=== PATIENT | male | born 1960 | race Caucasian/White ===

== ENCOUNTER 2016-06-10 15:29 | Emergency (ER) | payer OTHER ==
--- NOTE | 2016-06-10 17:17 | DIAGNOSTIC IMAGING REPORT ---
PROCEDURE: XR CHEST 2 VIEW INDICATION: CHEST PAIN TECHNIQUE: PA and lateral views. COMPARISON: None. FINDINGS: Allowing for overlying wires and electrodes, lungs are clear. Heart and mediastinum are normal. Thorax is normal. IMPRESSION: 1. Negative chest.
--- NOTE | 2016-06-10 20:25 | ED CLINICAL REPORT ---
Clinical Report - Physicians/Mid Levels [facility] [address] [place] [address] 06/10/2016 15:31 Patient: KAREY MICHAEL Arrived- By private vehicle. Historian- patient. HISTORY OF PRESENT ILLNESS Chief Complaint: CHEST PAIN. This started today At 2 pm. Sitting in chair, and is still present but is improving. It was abrupt in onset and has been waxing/waning but is not gone now. Onset during rest. At its maximum, severity described as moderate. When seen in the E.D., severity described as moderate. Modifying factors. Not worsened by anything. Not relieved by anything. It is described as burning and it is described as located in the left chest area. No radiation. No nausea, vomiting, difficulty breathing or diaphoresis. (reports there is an trauma, hemoptysis, hematemesis, leg swelling, recent surgery, history of DVT/PE. None of above). No additional chest pain. Similar symptoms previously: None. Recent medical care: Not recently seen/assessed. REVIEW OF SYSTEMS No fever, chills, cough or pedal edema or edema. No calf pain or pain, skin rash, ear pain or sore throat. No cough, difficulty breathing, abdominal pain, black stools or bloody stools. No constipation, diarrhea, nausea, vomiting or joint pain. No laceration, headache, head injury, diabetic symptoms or difficulty with urination. The patient has had decreased vision. It has been similar to previous symptoms. He has had chest pain. PAST HISTORY See nurses notes. PCP: Dr Yobani Lozano Ops: L tibia Manan, L eye, Liver biopsy Hosp: R leg infection. SOCIAL HISTORY Former smoker. Alcohol use. No drug use. Is a local resident. FAMILY HISTORY History of heart disease (Sister has valvular heart disease). ADDITIONAL NOTES The nursing notes have been reviewed. PHYSICAL EXAM Vital Signs: 06/10/2016 15:52 BP: 153/63. HR: 91. RR: 18. O2 saturation: 95%. Temp: 98.4 F. Blood pressure normal. Oxygen saturation normal. Appearance: Alert. Oriented X3. No acute distress. Eyes: Pupils equal, round and reactive to light. Eyes normal inspection. ENT: Ears normal. Nose normal. Pharynx normal. Neck: Normal inspection. Neck supple. CVS: Normal heart rate and rhythm. Heart sounds normal. Pulses normal. No decreased pulses. Respiratory: No respiratory distress. Breath sounds normal. Chest nontender. Abdomen: Soft and nontender. Bowel sounds normal. Skin: Skin warm and dry. Normal skin color. No rash. Normal skin turgor. Extremities: Extremities exhibit normal ROM. No lower extremity edema. Neuro: Oriented X 3. No motor deficit. No sensory deficit. LABS, X-RAYS, AND EKG EKG: No acute process. No acute ischemia. Normal EKG. Normal sinus rhythm. Rate: 92. Normal P waves. Normal ROSALINDA. Normal QRS complex. Normal axis. Normal ST and T waves, QT and QTc. Prior EKG unavailable. The study has been interpreted contemporaneously. The study has been independently viewed by me. The EKG appears to be a good tracing. Chest X-ray: (PROCEDURE: XR CHEST 2 VIEW INDICATION: CHEST PAIN TECHNIQUE: PA and lateral views. COMPARISON: None. FINDINGS: Allowing for overlying wires and electrodes, lungs are clear. Heart and mediastinum are normal. Thorax is normal. IMPRESSION: 1. Negative chest. Electronically Final signed by:Toni Rosenbaum MD 06/10/2016 5:15:39 PM). Laboratory Tests: CBC w Diff: (BENJY: 06/10/2016 16:00) ( MsgRcvd 06/10/2016 16:18) Final results Test Result Flag Units (Reference) WHITE BLOOD COUNT 6.9 K/uL (4.5-11.5) RED BLOOD COUNT 5.03 M/uL (4.50-5.90) HEMOGLOBIN 14.9 gm/dL (13.5-17.5) HEMATOCRIT 42.8 % (41.0-53.0) MEAN CELL VOLUME 85 fL (80-100) MEAN CORPUSCULAR HGB 30 pg (26-34) MEAN CORPUSCULAR HGB CONC 35 g/dL (31-37) RED CELL DISTRIBUTION WIDTH 12.9 % (11.6-14.8) PLATELET COUNT 84 L K/uL (150-400) NEUTROPHIL % 55.9 % (50-75) LYMPH % 36.7 % (25-40) MONO % 5.8 % (3-14) EOSINOPHIL % 1.2 % (0-4) BASOPHIL % 0.4 % (0-2) [id number]: (BENJY: 06/10/2016 16:00) ( [facility] 06/10/2016 19:08) Final results Test Result Flag Units (Reference) D-DIMER QUANTITATIVE 0.30 ug/mLFEU (0.27-0.52) The primary value of this quantitative assay relates toits negative predictive value (i.e. exclusion) of pulmonaryembolism/deep vein thrombosis/DIC.Elevated levels of d-dimer may also occur with:, age, cancer, inflammation, liver disease,post-op, infection, hematoma, coronary disease, peripheralarteriopathy, bleeding disorders and thrombolytic treatment.Results should be correlated with other clinical andradiological data.Testing Methodology: Latex Immunoassay Troponin-I: (BENJY: 06/10/2016 18:09) ( [facility] 06/10/2016 18:46) Final results Test Result Flag Units (Reference) TROPONIN I 0.05 ng/mL (0.00-1.5) TROPONIN REFERENCE RANGE:<0.1 NEGATIVE0.1-1.5 INDETERMINANT>1.5 POSITIVE CMP: (BENJY: 06/10/2016 16:00) ( [facility] 06/10/2016 17:08) Final results Test Result Flag Units (Reference) GLUCOSE 250 H mg/dL (70-110) BUN 14 mg/dL (7-18) CREATININE 0.9 mg/dL (0.6-1.3) Estimated GFR >60 mL/min Estimated GFR- >60 mL/min Note: Persistent reduction over 3 months in eGFR<60 mL/min/1.73 m2 defines CKD. Patients with eGFR values>=60 mL/min/1.73 m2 may also have CKD if evidence ofpersistent proteinuria. Additional information may be foundat www.[email or web address].org. SODIUM 140 mmol/L (136-145) POTASSIUM 4.1 mmol/L (3.5-5.1) CHLORIDE 105 mmol/L (98-107) CARBON DIOXIDE 25 mmol/L (21-32) CALCIUM 8.5 mg/dL (8.5-10.1) TOTAL PROTEIN 7.1 g/dL (6.4-8.2) ALBUMIN 3.8 g/dL (3.3-5.0) BILIRUBIN, TOTAL 0.5 mg/dL (0.0-1.0) ALKALINE PHOSPHATASE 109 U/L (46-116) AST (SGOT) 55 H U/L (15-37) ALT (SGPT) 136 H U/L (12-78) TROPONIN I 0.07 ng/mL (0.00-1.5) TROPONIN REFERENCE RANGE:<0.1 NEGATIVE0.1-1.5 INDETERMINANT>1.5 POSITIVE . PROGRESS AND PROCEDURES Course of Care: the patient is a pleasant 55 her old male with history of high cholesterol and diabetes presenting for burning left-sided chest pain. Patient's chest pain appears to be atypical nature. Patient describes the pain as burning in nature. Reports no alleviating or aggravating factors. Patient is nontoxic and in no acute distress. Differential diagnoses at this time includes pneumonia, gastric esophageal reflux, and acute myocardial infarction. Does not appear to be pleuritic in nature. [place] signs here in the emergency department is significant for only mild hypertension without hypoxia. Do not feel patient has pulmonary embolism. Do not feel further workup is required for a low Risk on Wells criteria. delta troponin needed based on patient's onset of symptoms about an hour and a half prior to evaluation. Patient is agreeable to the treatment and plan. plan of care discussed with Dr. Akash Valentine. Plan spoke with the patient's laboratory studies and chest x-ray which are currently pending. Appropriate disposition will be decided upon when the rest of the patient's laboratory studies andimaging results have returned. 18:23 06/10/16. Assumed care from Dr Mckee due to end of shift/R MD Serge Independent history and physical performed. Independently looked at EKG and CXR Given intermittent burning nature of pain which began at rest while drinking beer, EKG and 2 negative troponins the likelihood of ACS is low. Pain is 0/10 at the time of my evaluation. Clinical situation not consistent with pneumothorax, esophageal rupture or aortic dissection. Not PE. Disposition: Discharged. Condition: stable. CLINICAL IMPRESSION Atypical chest pain Clinical picture does not suggest aortic dissection, pulmonary embolism or pneumothorax. INSTRUCTIONS (NO ADVIL, ALCOHOL, NORMAL DOSE ASPRIN MAALOX OR OTHER LIQUID ANTACID 4 TIMES A DAY. ASA 81 mg per day.). Prescription Medications: Zantac 150 mg tablets: take 1 orally every 12 hours. Dispense thirty (30). No refills. Substitution is permissible. Follow-up: Follow up with your doctor in six days even if well. Understanding of the discharge instructions verbalized by patient and family. (Electronically signed by Akash Valentine MD 06/10/2016 23:00)
--- NOTE | 2016-06-10 20:25 | ED ORDER SUMMARY ---
..... Patient: KAREY MICHAEL OrderSheet [facility] VisitID: [id number] [address] [place] [address] 55y, M Registration Date/Time: 06/10/2016 ORDER SHEET Weight: 97.5 kg (stated) Allergies: Penicillins GENERAL ORDERS: EKG - ER Stat (15:51 06/10/2016 DBeyer R.N. per protocol) (Ack 15:58 LNations ER Tech1) (16:21 LNations ER Tech1) Chest 2V Urgent (16:02 06/10/2016 Paul Boyd) (Ack 16:04 LNations ER Tech1) (18:52 LNations ER Tech1) Billing Checker (Continuous) (CP) (16:02 06/10/2016 Paul Boyd) (Ack 16:04 LNations ER Tech1) (16:27 DBeyer R.N.) CBC w Diff Urgent (16:02 06/10/2016 Paul Boyd) (Ack 16:04 LNations ER Tech1) (16:27 DBeyer R.N.) CMP Urgent (16:02 06/10/2016 Paul Boyd) (Ack 16:04 LNations ER Tech1) (16:27 DBeyer R.N.) Troponin-I Urgent (16:02 06/10/2016 Paul Boyd) (Ack 16:04 LNations ER Tech1) (16:27 DBeyer R.N.) Pulse oximeter (16:02 06/10/2016 Paul Boyd) (Ack 16:04 LNations ER Tech1) (16:27 DBeyer R.N.) Troponin-I (draw 2 hours after first trop drawn) Urgent (17:37 06/10/2016 Paul Boyd) (Ack 17:45 LNations ER Tech1) (18:52 LNations ER Tech1) D-Dimer Urgent (18:38 06/10/2016 Susy MERCER) (Ack 18:40 LNations ER Tech1) (18:52 LNations ER Tech1) MEDICATION ORDERS: GI Cocktail WHITE PO 30 mL (NOW) (16:02 06/10/2016 Paul Boyd) (16:17 Yaz R.N.) Aspirin PO 325 mg (Do not crush or chew, NOW) (17:56 06/10/2016 Paul Boyd) (18:12 Yaz Baxter.N.) IV FLUIDS: IV Saline Lock (16:02 06/10/2016 Paul Boyd) (16:10 Yaz R.N.) ORDER SHEET NOTES: [Electronically signed by Akash Valentine MD (23:00 06/10/2016)] [Electronically signed by Baudilio Burns R.N. (23:06/10/2016)] [Electronically locked/signed by Baudilio Burns R.N. (23:06/10/2016)]
--- NOTE | 2016-06-10 20:25 | ED NURSING NOTES ---
Clinical Report - Nurses [facility] [place] [address] 06/10/2016 15:31 Patient: KAREY MICHAEL TRIAGE Triage time 15:53 Jun 10 2016. Acuity: LEVEL 3. Chief Complaint: CHEST PAIN. --15:56 Baudilio Burns R.N. 15:52 06/10/16. BP: 153/63. HR: 91. RR: 18. O2 saturation: 95%. Temp: 98.4 F. Pain level now 07/30. --15:56 Baudilio Burns R.N. Weight: 97.5 kg stated. Height/Length: 68 inches Per Patient. BMI: 32.7. --15:56 Baudilio Burns R.N. Medications Lantus Subcutaneous. --15:54 Baudilio Burns R.N. MetFORMIN HCl Oral. --15:54 Baudilio Burns R.N. Atorvastatin Calcium Oral. --15:55 Baudilio Burns R.N. Allergies Penicillins. --15:53 Baudilio Burns R.N. History Arrived by private vehicle. ( Pt reports sudden on set L sided chest pain described as buring). This started just prior to arrival. PAST MEDICAL HX: Diabetes mellitus. SOCIAL HX: Never smoker. No alcohol use or drug use. --15:56 Baudilio Burns R.N. PROBLEMS: Hypercholesterolemia. Diabetes Mellitus. --15:55 Baudilio Burns R.N. Assessment The patient states feels better. --15:56 Baudilio Burns R.N. Interventions ID band on patient. To treatment room. --15:56 Baudilio Burns R.N. NURSING PROGRESS NOTES EKG time: (16:01). EKG was performed by a tech and shown to the ED physician. --16:06 Cora Welch 16:10 06/10/2016 Site #1 started prior to arrival by EMS via IV wrist with an 18g angiocath, with aseptic technique and good blood return; one attempt. Blood drawn: rainbow set. Labeled in the presence of the patient. Saline lock flushed with saline. --16:10 Baudilio Burns R.N. 16:17 06/10/2016 GI COCKTAIL WHITE (Simethicone) PO. Allergies verified and confirmed 5 rights. --16:17 Baudilio Burns R.N. 18:12 06/10/2016 Aspirin PO 325 mg given. Allergies verified and confirmed 5 rights. --18:12 Baudilio Burns R.N. 18:13 06/10/16. BP: 133/80. HR: 82. O2 saturation: 96%. --18:13 Baudilio Burns R.N. lunchroom monitor and pulse oximeter placed on patient. Patient gowned. Call light placed in reach. Side rails up x 1. Bed placed in lowest position. --18:13 Baudilio Burns R.N. 19:14 06/10/16. BP: 97/66. HR: 80. O2 saturation: 98%. --19:14 Baudilio Burns R.N. DISPOSITION / DISCHARGE No learning barriers present. Discharge instructions provided and reviewed with the patient. Reviewed warnings. Reviewed medication(s). Treatments reviewed. Patient verbalized understanding. Written instructions provided in [place]. The patient was discharged by the physician. He was discharged home and accompanied by family. He left the Emergency Department ambulatory and via private vehicle. Family member driving. --20:39 Baudilio Burns R.N. 20:38 06/10/16. BP: 110/72. HR: 78. RR: 20. O2 saturation: 100%. Pain level now 0/10. --20:39 Baudilio Burns R.N. Locked/Released at 06/10/2016 23:01 by Baudilio Burns R.N.
--- NOTE | 2016-06-10 20:25 | ED ORDER SUMMARY ---
..... Patient: KAREY MICHAEL OrderSheet [facility] VisitID: [id number] [address] [place] [address] 55y, M Registration Date/Time: 06/10/2016 ORDER SHEET Weight: 97.5 kg (stated) Allergies: Penicillins GENERAL ORDERS: EKG - ER Stat (15:51 06/10/2016 DBeyer R.N. per protocol) (Ack 15:58 LNations ER Tech1) (16:21 LNations ER Tech1) Chest 2V Urgent (16:02 06/10/2016 Paul Boyd) (Ack 16:04 LNations ER Tech1) (18:52 LNations ER Tech1) Pet Crematory Worker (Continuous) (CP) (16:02 06/10/2016 Paul Boyd) (Ack 16:04 LNations ER Tech1) (16:27 DBeyer R.N.) CBC w Diff Urgent (16:02 06/10/2016 Paul Boyd) (Ack 16:04 LNations ER Tech1) (16:27 DBeyer R.N.) CMP Urgent (16:02 06/10/2016 Paul Boyd) (Ack 16:04 LNations ER Tech1) (16:27 DBeyer R.N.) Troponin-I Urgent (16:02 06/10/2016 Paul Boyd) (Ack 16:04 LNations ER Tech1) (16:27 DBeyer R.N.) Pulse oximeter (16:02 06/10/2016 Paul Boyd) (Ack 16:04 LNations ER Tech1) (16:27 DBeyer R.N.) Troponin-I (draw 2 hours after first trop drawn) Urgent (17:37 06/10/2016 Paul Boyd) (Ack 17:45 LNations ER Tech1) (18:52 LNations ER Tech1) D-Dimer Urgent (18:38 06/10/2016 Susy MERCER) (Ack 18:40 LNations ER Tech1) (18:52 LNations ER Tech1) MEDICATION ORDERS: GI Cocktail WHITE PO 30 mL (NOW) (16:02 06/10/2016 Paul Boyd) (16:17 Yaz R.N.) Aspirin PO 325 mg (Do not crush or chew, NOW) (17:56 06/10/2016 Paul Boyd) (18:12 Yaz Baxter.N.) IV FLUIDS: IV Saline Lock (16:02 06/10/2016 Paul Boyd) (16:10 Yaz R.N.) ORDER SHEET NOTES: [Electronically signed by Akash Valentine MD (23:00 06/10/2016)] [Electronically signed by Baudilio Burns R.N. (23:06/10/2016)] [Electronically locked/signed by Baudilio Burns R.N. (23:06/10/2016)]
--- NOTE | 2016-06-10 20:25 | ED NURSING NOTES ---
Clinical Report - [facility]es [facility] [address] 06/10/2016 15:31 Patient: KAREY MICHAEL TRIAGE Triage time 15:53 Jun 10 2016. Acuity: LEVEL 3. Chief Complaint: CHEST PAIN. --15:56 Baudilio Burns R.N. 15:52 06/10/16. BP: 153/63. HR: 91. RR: 18. O2 saturation: 95%. Temp: 98.4 F. Pain level now 07/30. --15:56 Baudilio Burns R.N. Weight: 97.5 kg stated. Height/Length: 68 inches Per Patient. BMI: 32.7. --15:56 Baudilio Burns R.N. Medications Lantus Subcutaneous. --15:54 Baudilio Burns R.N. MetFORMIN HCl Oral. --15:54 Baudilio Burns R.N. Atorvastatin Calcium Oral. --15:55 Baudilio Burns R.N. Allergies Penicillins. --15:53 Baudilio Burns R.N. History Arrived by private vehicle. ( Pt reports sudden on set L sided chest pain described as buring). This started just prior to arrival. PAST MEDICAL HX: Diabetes mellitus. SOCIAL HX: Never smoker. No alcohol use or drug use. --15:56 Baudilio Burns R.N. PROBLEMS: Hypercholesterolemia. Diabetes Mellitus. --15:55 Baudilio Burns R.N. Assessment The patient states feels better. --15:56 Baudilio Burns R.N. Interventions ID band on patient. To treatment room. --15:56 Baudilio Burns R.N. NURSING PROGRESS NOTES EKG time: (16:01). EKG was performed by a tech and shown to the ED physician. --16:06 Cora Welch 16:10 06/10/2016 Site #1 started prior to arrival by EMS via IV wrist with an 18g angiocath, with aseptic technique and good blood return; one attempt. Blood drawn: rainbow set. Labeled in the presence of the patient. Saline lock flushed with saline. --16:10 Baudilio Burns R.N. 16:17 06/10/2016 GI COCKTAIL WHITE (Simethicone) PO. Allergies verified and confirmed 5 rights. --16:17 Baudilio Burns R.N. 18:12 06/10/2016 Aspirin PO 325 mg given. Allergies verified and confirmed 5 rights. --18:12 Baudilio Burns R.N. 18:13 06/10/16. BP: 133/80. HR: 82. O2 saturation: 96%. --18:13 Baudilio Burns R.N. quality assurance monitor final and pulse oximeter placed on patient. Patient gowned. Call light placed in reach. Side rails up x 1. Bed placed in lowest position. --18:13 Baudilio Burns R.N. 19:14 06/10/16. BP: 97/66. HR: 80. O2 saturation: 98%. --19:14 Baudilio Burns R.N. DISPOSITION / DISCHARGE No learning barriers present. Discharge instructions provided and reviewed with the patient. Reviewed warnings. Reviewed medication(s). Treatments reviewed. Patient verbalized understanding. Written instructions provided in [place]. The patient was discharged by the physician. He was discharged home and accompanied by family. He left the Emergency Department ambulatory and via private vehicle. Family member driving. --20:39 Baudilio Burns R.N. 20:38 06/10/16. BP: 110/72. HR: 78. RR: 20. O2 saturation: 100%. Pain level now 0/10. --20:39 Baudilio Burns R.N. Locked/Released at 06/10/2016 23:01 by Baudilio Burns R.N.
--- NOTE | 2016-06-10 23:02 | ED MAR SUMMARY ---
..... Medication Administration Record [facility] [address] [place] [address] Patient: KAREY MICHAEL Visit ID: [id number] 55y, M Weight: 97.5 kg Height/Length: 68 in BMI: 32.7 ALLERGIES: Penicillins Given 16:17 06/10/2016 Baudilio Burns, R.N. Medication Administered: GI COCKTAIL WHITE [PO] (SIMETHICONE), Dose: PO. Medication Ordered: GI Cocktail WHITE PO 30 mL (NOW). Given 18:12 06/10/2016 Baudilio Burns, R.N. Medication Administered: ASPIRIN [PO], Dose: 325 mg PO. Medication Ordered: Aspirin PO 325 mg (Do not crush or chew, NOW).
--- NOTE | 2016-06-10 23:02 | ED DISCHARGE INSTRUCTIONS ---
Patient: KAREY MICHAEL General Instructions [facility] VisitID: [id number] [place] [address] 55y, M Registration Date/Time: 06/10/2016 Atypical chest pain INSTRUCTIONS (NO ADVIL, ALCOHOL, NORMAL DOSE ASPRIN MAALOX OR OTHER LIQUID ANTACID 4 TIMES A DAY. ASA 81 mg per day.). Prescription Medications: Zantac 150 mg tablets: take 1 orally every 12 hours. Dispense thirty (30). No refills. Substitution is permissible. Follow-up: Follow up with your doctor in six days even if well. Understanding of the discharge instructions verbalized by patient and family. ADDITIONAL INFORMATION Chest Pain, Noncardiac Based on your visit today, the exact cause of your chest pain is not certain. Your condition does not seem serious and your pain does not appear to be coming from your heart. However, sometimes the signs of a serious problem take more time to appear. Therefore, please watch for the warning signs listed below. Home Care: Rest today and avoid strenuous activity. Take any prescribed medicine as directed. Follow Up with your doctor or this facility as instructed or if you do not start to feel better within 24 hours. Get Prompt Medical Attention if any of the following occur: A change in the type of pain: if it feels different, becomes more severe, lasts longer, or begins to spread into your shoulder, arm, neck, jaw or back Shortness of breath or increased pain with breathing Cough with dark colored sputum (phlegm) or blood Weakness, dizziness, or fainting Fever of 100.4F (38C) or higher, or as directed by your healthcare provider Swelling, pain or redness in one leg You have been given the following additional information: Chest Pain, Noncardiac (Electronically signed by Akash Valentine MD 06/10/2016 23:00)
--- NOTE | 2016-06-10 23:02 | ED DISCHARGE INSTRUCTIONS ---
Patient: KAREY MICHAEL General Instructions [facility] VisitID: [id number] [place] [address] 55y, M Registration Date/Time: 06/10/2016 Atypical chest pain INSTRUCTIONS (NO ADVIL, ALCOHOL, NORMAL DOSE ASPRIN MAALOX OR OTHER LIQUID ANTACID 4 TIMES A DAY. ASA 81 mg per day.). Prescription Medications: Zantac 150 mg tablets: take 1 orally every 12 hours. Dispense thirty (30). No refills. Substitution is permissible. Follow-up: Follow up with your doctor in six days even if well. Understanding of the discharge instructions verbalized by patient and family. ADDITIONAL INFORMATION Chest Pain, Noncardiac Based on your visit today, the exact cause of your chest pain is not certain. Your condition does not seem serious and your pain does not appear to be coming from your heart. However, sometimes the signs of a serious problem take more time to appear. Therefore, please watch for the warning signs listed below. Home Care: Rest today and avoid strenuous activity. Take any prescribed medicine as directed. Follow Up with your doctor or this facility as instructed or if you do not start to feel better within 24 hours. Get Prompt Medical Attention if any of the following occur: A change in the type of pain: if it feels different, becomes more severe, lasts longer, or begins to spread into your shoulder, arm, neck, jaw or back Shortness of breath or increased pain with breathing Cough with dark colored sputum (phlegm) or blood Weakness, dizziness, or fainting Fever of 100.4F (38C) or higher, or as directed by your healthcare provider Swelling, pain or redness in one leg You have been given the following additional information: Chest Pain, Noncardiac (Electronically signed by Akash Valentine MD 06/10/2016 23:00)
--- NOTE | 2016-06-10 23:02 | ED MAR SUMMARY ---
..... Medication Administration Record [facility] [address] [place] [address] Patient: KAREY MICHAEL Visit ID: [id number] 55y, M Weight: 97.5 kg Height/Length: 68 in BMI: 32.7 ALLERGIES: Penicillins Given 16:17 06/10/2016 Baudilio Burns, R.N. Medication Administered: GI COCKTAIL WHITE [PO] (SIMETHICONE), Dose: PO. Medication Ordered: GI Cocktail WHITE PO 30 mL (NOW). Given 18:12 06/10/2016 Baudilio Burns, R.N. Medication Administered: ASPIRIN [PO], Dose: 325 mg PO. Medication Ordered: Aspirin PO 325 mg (Do not crush or chew, NOW).
--- NOTE | 2016-06-10 23:02 | ED MED RECONCILIATION SUMMARY ---
Patient: KAREY MICHAEL Medication Reconciliation Report [facility] VisitID: [id number] [address] [place] [address] 55y, M Registration Date/Time: 06/10/2016 Weight: 97.5 kg Height/Length: 68 in. BMI: 32.7 ALLERGIES: Penicillins The patient's Home Medications are listed below: THE FOLLOWING MEDICATIONS NEED TO BE RECONCILED: Atorvastatin Calcium Oral Lantus Subcutaneous MetFORMIN HCl Oral The source(s) of the original Home Medication information: Not obtained. The following Medications were given to the patient in the Emergency Department: GI COCKTAIL WHITE [PO] PO, administered: 06/10/2016 4:17:00 PM Aspirin [PO] PO 325 mg, administered: 06/10/2016 6:12:00 PM The following Medications were prescribed to the patient: Zantac 150 mg tablets: take 1 orally every 12 hours. Dispense thirty (30). No refills. Substitution is permissible. -- Akash Valentine MD
--- NOTE | 2016-06-10 23:02 | ED MED RECONCILIATION SUMMARY ---
Patient: KAREY MICHAEL Medication Reconciliation Report [facility] VisitID: [id number] [address] [place] [address] 55y, M Registration Date/Time: 06/10/2016 Weight: 97.5 kg Height/Length: 68 in. BMI: 32.7 ALLERGIES: Penicillins The patient's Home Medications are listed below: THE FOLLOWING MEDICATIONS NEED TO BE RECONCILED: Atorvastatin Calcium Oral Lantus Subcutaneous MetFORMIN HCl Oral The source(s) of the original Home Medication information: Not obtained. The following Medications were given to the patient in the Emergency Department: GI COCKTAIL WHITE [PO] PO, administered: 06/10/2016 4:17:00 PM Aspirin [PO] PO 325 mg, administered: 06/10/2016 6:12:00 PM The following Medications were prescribed to the patient: Zantac 150 mg tablets: take 1 orally every 12 hours. Dispense thirty (30). No refills. Substitution is permissible. -- Akash Valentine MD
== END 2016-06-10 20:37 | disposition home or self-care (01) ==
LOC: ED SRH 15:29
DX: R07.89 Other chest pain (principal); E11.9 Type 2 diabetes mellitus without complications; Z88.0 Allergy status to penicillin; Z87.891 Personal history of nicotine dependence
CPT/HCPCS: 90100; 90616; 91556; 95059